=== PATIENT | female | born 1985 | race Caucasian/White ===

== ENCOUNTER 2017-02-08 13:23 | Emergency (ER) | payer OTHER ==
[2017-02-08 13:36] VITALS: BP 117/78
--- NOTE | 2017-02-08 16:33 | ED ---
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 Admits to some oozing of blood and denies FB. Tetanus is UTD as she received it 3 years ago during her . She denies any other injuries or complaints. Denies loss of ROM, obvious deformity and numbness/tingling. No PMHx. - History of Current Complaint Stated Complaint: RT HAND LAC Time Seen by Provider: 02/08/17 14:58 Hx Obtained From: Patient Mechanism of Injury: Sharp/Blunt Trauma - broken glass Onset/Duration: Sudden Onset Aggravating: Movement Alleviating: Compression Timing: Constant Onset Severity: Mild Current Severity: Mild Pain Intensity: 2 Pain Scale Used: 0-10 Numeric Associated Signs & Symptoms: Negative Related Hx: Dominant Hand (Right) - Allergy/Home Medications Allergies/Adverse Reactions: Allergies Allergy/AdvReac Type Severity Reaction Status Date / Time No Known Allergies Allergy Verified 04/24/13 04:09 PMH/Surg Hx/FS Hx/Imm Hx Endocrine/Hematology History: Denies: Hx Anticoagulant Therapy, Hx Diabetes Cardiovascular History: Denies: Hx Hypertension Respiratory History: Denies: Hx Asthma - Surgical History Surgery Procedure, Year, and Place: n/a - Immunization History Date of Tetanus Vaccine: 3 years ago Immunizations Up to Date: Yes Infectious Disease History: No Infectious Disease History: Denies: Traveled Outside the [place] in Last 30 Days - Family History Known Family History: Positive: None - Social History Alcohol Use: Rare Substance Use Type: Reports: None Smoking Status (MU): Never Smoked Tobacco Review of Systems Constitutional: Negative Cardiovascular: Negative Respiratory: Negative Musculoskeletal: Negative Positive: Other - laceration Neurological: Negative All Other Systems Reviewed And Are Negative: Yes Physical Exam Triage Information Reviewed: Yes Vital Signs On Initial Exam: Initial Vitals Temp Pulse Resp BP Pulse Ox 97.9 F 71 20 117/78 100 02/08/17 13:34 02/08/17 13:34 02/08/17 13:34 02/08/17 13:34 02/08/17 13:34 Vital Signs Reviewed: Yes Appearance: Positive: Well-Appearing, No Pain Distress, Well-Nourished Skin: Positive: Warm, Skin Color Reflects Adequate Perfusion, Dry, Soft, Other - ~1.5 cm linear laceration noted to right index posterior PIP joint without FB and minimal active bleeding. approximately .5cm deep through epidermal layer. No other abrasion or laceration noted. No ecchymosis, edema, step off, crepitus or obvious deformity noted to hand. Rest of skin exam normal.. Negative: Cold, Numb Eyes: Positive: Normal, Conjunctiva Clear ENT: Positive: Hearing grossly normal Respiratory/Lung Sounds: Positive: Clear to Auscultation, Breath Sounds Present. Negative: Rales, Rhonchi, Wheezes Cardiovascular: Positive: Normal, RRR, Pulses are Symmetrical in both Upper and Lower Extremities - 2+ radial b/l. Negative: Murmur, Rub Musculoskeletal: Positive: Normal, Strength/ROM Intact, Pain @ - some pain on palpation of laceration area and with movement, but able.. Negative: Limited @ , Interruption @, Edema Left, Edema Right Neurological: Positive: Normal, Sensory/Motor Intact - sensation intact b/l, Alert, Oriented to Person Place, Time, NV Bundle Intact Distally Psychiatric: Positive: Normal Procedures - Laceration/Wound Repair 1 Location: upper extremity - right index finger at posterior PIP joint Description: Linear - without tendon or bone involvement Anesthesia: Local, 1.0% Length, Depth and Shape: 1.5 cm length, .5cm depth, linear Betadine Prep?: Yes Irrigated w/ Saline (ccs): 50 Laceration/Wound Explored: clean, no foreign body removed Closure: Single Layer Suture Type: Prolene - 3-0 Number of Sutures: 3 Layer Closure?: No Sterile Dressing Applied?: Yes - telfa and coband Diagnostics - Vital Signs Vital Signs Temp Pulse Resp BP Pulse Ox 02/08/17 13:36 97.4 F 85 20 117/78 100 02/08/17 13:34 97.9 F 71 20 117/78 100 - Laboratory Lab Statement: Any lab studies that have been ordered have been reviewed, and results considered in the medical decision making process. Laceration Repair Course/Dx - Course Course Of Treatment: no x-ray obtained due to CRISTINA, HPI and PE findings. Laceration was sutured without complication, patient tolerated procedure well. Aware of worsening signs and symptoms to be aware of, such as infection. Remove in 5-7 days. Keep covered for first 24-48 hours. Keep clean and dry. Ibuprofen for discomfort. Follow up PCP. Yesy MEJIA. - Differential Dx Differental Diagnoses: Abrasion, Avulsion, Laceration, Other - Clinical Impression Provider Diagnoses: Laceration of right index finger Discharge - Discharge Plan Condition: Stable Disposition: HOME Patient Education Materials: Care For Your Stitches (ED), Laceration (ED) Referrals: Yoselyn Downing MD [Primary Care Provider] - Additional Instructions: Take Aleve or Motrin to help with pain and inflammation. This area may be a little sore for the next couple of days. Ice and elevate to help with swelling and for relief of pain. Keep dry for the next 24-48 hours. Keep clean and dry after removal of original dressing. Do not scrub stitches. Watch for signs of infection such as redness, swelling and discharge. If you develop these symptoms please seek medical attention promptly. Have stitches removed in the next 5-7 days. Follow up with PCP.
== END 2017-02-08 16:53 | disposition home or self-care (01) ==
LOC: ED 13:23
DX: S61.210A Laceration without foreign body of right index finger without damage to nail, initial encounter (principal); X58.XXXA Exposure to other specified factors, initial encounter; Y93.9 Activity, unspecified; Y92.9 Unspecified place or not applicable
CPT/HCPCS: 12001; 99281

== ENCOUNTER 2018-12-27 17:41 | Observation (INO) | payer OTHER ==
--- NOTE | 2018-12-27 18:16 | PN ---
L&D Outpatient: Visit - Reproductive Information Estimated Due Date: 01/24/19 Gestational Age: 36 Weeks and 0 Days : 5 Para: 2 - 2021 - Reason for Visit Visit Reason: cramping - Antepartal Records Antepartal Record: Reviewed, Complicated by: - history of precipitous deliveries, echogenic foci, anemia - Patient History Patient History Significant: Yes Patient History Significant For: LEEP, history of UTIs, history of depression Review of Systems Constitutional: Comfortable CV Complaint: No Respiratory: Shortness of Breath: No Gastrointestinal: No Nausea/Vomiting, Normal Bowel Movement Genitourinary: No Dysuria, No Bleeding, No Leaking Fluid Musculoskeletal: No Epigastric Pain, Contractions Neurological: No Headache, No Visual Changes Movement: Normal L&D Outpatient: Exam - Cervical Exam Cervical Exam: / - Abdominal Exam Abdomen Exam: Fundal Height Consistent with Dates - Membranes Membrane Status: Intact - Ultrasound/Biophysical Profile Ultrasound Status: Not Done EFM Findings - External Monitor Findings Baseline Heart Rate: 135 External Monitor Findings: Accelerations Present, No Pattern of Variable or Late Decelerations, Variability Moderate, Baseline Stable Contractions: Regular, Mild, < 45 Seconds L&D Outpatient: Asses/Plan Assessment: 33 y.o. , 36wks EGA, early labor - Discharge Diagnosis Discharge Diagnosis: Supervision-Normal Preg Plan: Continue Observation - IV fluids and CBC and type and screen
[2018-12-27] MEDS ORDERED: Lactated Ringers 1000 ML Bag* 1,000 ML IV SCH ×3 (19:00→22:00)
[2018-12-27] MEDS ORDERED: Lactated Ringers 1000 ML Bag* 1,000 ML IV ONE (21:02)
[2018-12-27] MEDS ORDERED: Penicillin G Potassium IV* 5,000,000 UNITS in NS 0.9% 100 ML* 100 ML IVPB ONE (21:02)
[2018-12-27] MEDS ORDERED: Buffered Lidocaine 1% SYRIN* 1 ML/SYRINGE INTRADERM ONE (21:02)
--- NOTE | 2018-12-27 21:14 | HP ---
General Information - Reason for Visit Threatened labor - General Information Maternal Age: 33 Grav: 5 Para: 2 SAB: 0 IEA: 2 Estimated Due Date: 01/24/19 Determined By: Early Ultrasound Gestational Age in Weeks/Days: 36. Maternal Blood Type and Rh: A Negative - Results this Serology/RPR Result: Non-Reactive Rubella Result: Non-Immune HBsAg Result: Negative HIV Result: Negative Past Medical History Delivery History: Hx Uncomplicated Vaginal Delivery Pertinent Past Medical History: See Records - history of UTIs, history of depression, LEEP 2008 Pertinent Past Surgical History: See Records - LEEP 2008 Pertinent Family History: See Records - mgm: von willebrands,\; CVD, DM, HTN, colon CA, celiac - Antepartal Records Antepartal Records: Reviewed, Complicated by: - history of precipitous deliveries, echogenic foci, left hydronephrosis (resolved), anemia Review of Systems Constitutional: Uncomfortable CV Complaint: No Respiratory: Shortness of Breath: No Gastrointestinal: No Nausea/Vomiting, Normal Bowel Movement Genitourinary: No Dysuria, No Leaking Fluid, Spotting Musculoskeletal: No Epigastric Pain, Contractions Neurological: No Headache, No Visual Changes Movement: Normal Exam Allergies/Adverse Reactions: Allergies No Known Allergies Allergy (Verified 04/24/13 04:09) T: 97.8, P:84, R:18, BP: 120/70, O2:99% Lab Values - Entire Visit: Laboratory Tests 12/27/18 18:35 Blood Type A Negative Antibody Screen Positive Antibody Identification Anti-D Direct Antiglob Test Negative - Measurements Height: 5 ft 2 in Weight: 158 lb Weight in lbs: [phone] Body Mass Index (BMI): 28.9 Pre- Weight: 123 lb Weight Gained This : 35 lbs and 0 ozs - Exam Breast: Breast Exam Deferred CVA: No CVA Tenderness Extremities: No Edema Heart: Normal Rhythm/Heart Sounds HEENT: No Significant Findings Lungs: Clear Bilaterally Rectal: Rectal Exam Deferred Reflexes: DTR 2+ Thyroid: No Thyromegaly - Abdominal Exam Abdomen Exam: Non-Tender, Fundal Height Consistent with Dates - Ultrasound/Biophysical Profile Ultrasound Status: Not Done Targeted Exam Findings See L&D Outpatient Visit Provider Note for Findings: Yes Estimated Weight: 6lbs 9oz Cervical Exam: 5cm Effacement: 90% Station: -1 Presenting Part: Vertex Membrane Status: Bulging Bleeding/Discharge: Bloody Show EFM Findings - External Monitor Findings Baseline Heart Rate: 135 External Monitor Findings: Accelerations Present, No Pattern of Variable or Late Decelerations, Variability Moderate, Baseline Stable Contractions: Regular, Moderate, 45-90 Seconds Assessment/Plan - Assessment 33 y.o. , threatened labor, GBS unknown - Obstetrical Risk Factors Obstetrical Risk Factors: GBS Unknown, - Plan Plan: IV Hydration, Antibiotic Prophylaxis, Admit - Anticipate Vaginal Delivery - Date/Time of Admission Date of Admission: 12/27/18 Time of Admission: 21:00
[2018-12-28] MEDS: Penicillin G Potassium IV* 2,500,000 UNITS in NS 0.9% 100 ML* 100 ML IVPB SCH ×2 (01:40→05:27)
--- NOTE | 2018-12-28 07:57 | PN ---
Progress Note - Progress Note Date of Service: 12/28/18 SOAP: Subjective: Pt reports contractions have spaced out and are milder. Pt reports bloody/ mucus discharge. Pt denies LOF or active bleeding. Objective: BP:107/68, P:81, T:98.2, FHR: 135bpm, + accels, -decels, moderate variability, ctx q 8min. cervix: 4/90/-1 Assessment: 33 y.o. , 36w1d, GBS status pending, threatened labor Plan: 1) Ambulation, if no contractions discharge to home. 2) Reviewed s/s of labor and when to call
[2018-12-28] MEDS ORDERED: Betamethasone INJ* 6 MG/ML 5 ML VIAL (30 MG) IM ONE (08:38)
== END 2018-12-28 09:30 | disposition home or self-care (01) ==
LOC: MCHOBOUT 17:41 → MCHOB 21:01 → INTOOBSV 21:01
PROVIDERS: ADMIT Midwife; ATTEND Midwife
DX: Z34.83 Encounter for supervision of other normal pregnancy, third trimester (principal); Z3A.36 36 weeks gestation of pregnancy
CPT/HCPCS: 36415; 86850; 86870; 86880; 86900; 86901; 87070; 87077; G0378; J0702; J2540

== ENCOUNTER 2019-01-09 21:30 | Inpatient (IN) | payer OTHER ==
[2019-01-09] MEDS ORDERED: Lactated Ringers 1000 ML Bag* 1,000 ML IV ONE (22:18)
[2019-01-09] MEDS ORDERED: Buffered Lidocaine 1% SYRIN* 1 ML/SYRINGE INTRADERM ONE (22:18)
--- NOTE | 2019-01-09 22:38 | HP ---
General Information - Reason for Visit Patient presents to Labor and delivery with complaints of leakage of vaginal fluid. - General Information Maternal Age: 33 Grav: 5 Para: 2 SAB: 0 IEA: 2 Estimated Due Date: 01/24/19 Determined By: Early Ultrasound Gestational Age in Weeks/Days: 38 Maternal Blood Type and Rh: A Negative - Results this Serology/RPR Result: Non-Reactive Rubella Result: Non-Immune HBsAg Result: Negative HIV Result: Negative GBS Culture Result: Negative Past Medical History Delivery History: See Records - History of precipitous deliveries at home Pertinent Past Medical History: See Records Past Medical History Comment: Depression Pertinent Past Surgical History: See Records Past Surgical History Comment: Leep 2008 Removal of throat ganglion cyst 1992 Pertinent Family History: See Records - Antepartal Records Antepartal Records: Reviewed, Complicated by: - Anemia, hydronephrosis mild Review of Systems Constitutional: Comfortable CV Complaint: No Respiratory: Shortness of Breath: No Gastrointestinal: No Nausea/Vomiting, Normal Bowel Movement Genitourinary: Leaking Fluid, No Dysuria, No Bleeding Musculoskeletal: No Complaint, No Epigastric Pain Neurological: No Headache, No Visual Changes Movement: Normal Exam Allergies/Adverse Reactions: Allergies No Known Allergies Allergy (Verified 01/09/19 21:54) Temp 98.8 BP 127/70 P 90 RR 18 POx 98 % Lab Values - Entire Visit: Laboratory Tests 01/09/19 21:45 Vag Amniotic Fld Detect Positive - Measurements Height: 5 ft 2 in Weight: 159 lb Weight in lbs: [phone] Body Mass Index (BMI): 29.0 Pre- Weight: 123 lb Weight Gained This : 36 lbs and 0 ozs - Exam Breast: Breast Exam Deferred CVA: No CVA Tenderness Extremities: No Edema Heart: Normal Rhythm/Heart Sounds HEENT: No Significant Findings Lungs: Clear Bilaterally Rectal: Rectal Exam Deferred Reflexes: DTR 2+ Thyroid: No Thyromegaly - Abdominal Exam Abdomen Exam: Non-Tender, Fundal Height Consistent with Dates - Ultrasound/Biophysical Profile Ultrasound Status: Not Done Biophysical Profile: Normal Reactive NST Targeted Exam Findings See L&D Outpatient Visit Provider Note for Findings: N/A Cervical Exam: 6cm Effacement: 80% Station: +1 Presenting Part: Vertex Membrane Status: SROM Amniotic Fluid Evaluation: Positive ROM Plus EFM Findings - External Monitor Findings Baseline Heart Rate: 140 External Monitor Findings: Accelerations Present Contractions: Regular, Moderate, < 45 Seconds Assessment/Plan - Plan Plan: Admit - Anticipate Vaginal Delivery
[2019-01-09 22:52] LABS: ABS Eosinophils 0.2 10^3/ul (0-0.6); ABS Monocytes 0.6 10^3/ul (0-0.8); ABS Neutrophils 4.5 10^3/ul (1.5-7.7); Eosinophil % 2.7 %; Hematocrit 33 % (35-47); Hemoglobin 11.4 g/dL (12.0-16.0); Mean Corpuscular HGB Conc 35 g/dL (31-36); Mean Corpuscular Hemoglobin 33 pg (27-31); Mean Corpuscular Volume 95 fL (80-97); Mean Platelet Volume 8.5 fL (7.4-10.4); Platelet Count 180 10^3/uL (150-450); Red Blood Count 3.47 10^6 /uL (3.70-4.87); Red Cell Distribution Width 15 % (10.5-15); White Blood Count 7.3 10^3/uL (3.5-10.8)
[2019-01-09] MEDS ORDERED: Lactated Ringers 1000 ML Bag* 1,000 ML IV SCH (23:00)
[2019-01-10] MEDS ORDERED: Oxytocin in LR* 20 UNITS/1,000 ML BAG IVPB ONE (07:08)
[2019-01-10] MEDS ORDERED: Oxytocin in LR* 20 UNITS/1,000 ML BAG IVPB SCH (08:00)
[2019-01-10] MEDS ORDERED: Witch Hazel PAD* JAR TOPICAL PRN (15:02)
[2019-01-10] MEDS ORDERED: Dibucaine 1% 28.35 GM TUBE PR PRN (15:02)
[2019-01-10] MEDS ORDERED: Glycerin ADULT SUPP PR PRN (15:02)
[2019-01-10] MEDS ORDERED: Acetaminophen TAB* 325 MG PO PRN (15:02)
--- NOTE | 2019-01-10 15:09 | PROCNOTE ---
[facility] OB: Delivery Note - Delivery A Date of : 01/10/19 Time of : 14:50 Sex: Male Weight at : 8 lb Score 1 Minute: 9 Score 5 Minutes: 9 Gestational Age in Weeks and Days at Delivery: 38 Weeks and 0 Days Delivery Method: Spontaneous Vaginal Labor: Spontaneous Did Patient attempt ?: N/A, No Previous Amniotic Fluid: Clear Estimated Blood Loss: 300 Anesthesia/Analgesia: None Delivered By: Steven Oropeza - Nursery Level of Nursery: Regular/Bedside - Perineum Perineal Injury: None/Intact Perineal Repair: None - Events Delivery Events of Note: Pitocin During Labor
[2019-01-10] MEDS ORDERED: Lactated Ringers 1000 ML Bag* 1,000 ML IV SCH (16:00)
[2019-01-10] MEDS: Ibuprofen TAB* 600 MG PO PRN ×2 (16:35→22:55)
[2019-01-10] MEDS ORDERED: Simethicone TAB* 80 MG TAB.CHEW PO SCH (17:30)
[2019-01-10] MEDS: Docusate CAP* 100 MG PO SCH (22:55)
[2019-01-11 07:12] LABS: ABS Eosinophils 0.2 10^3/ul (0-0.6); ABS Lymphocytes 2.3 10^3/ul (1.0-4.8); ABS Neutrophils 6.4 10^3/ul (1.5-7.7); Eosinophil % 1.9 %; Hematocrit 32 % (35-47); Hemoglobin 10.9 g/dL (12.0-16.0); Lymphocyte % 23.4 %; Mean Corpuscular HGB Conc 34 g/dL (31-36); Mean Corpuscular Hemoglobin 33 pg (27-31); Mean Corpuscular Volume 97 fL (80-97); Platelet Count 165 10^3/uL (150-450); Red Cell Distribution Width 15 % (10.5-15); White Blood Count 9.9 10^3/uL (3.5-10.8)
[2019-01-11] MEDS ORDERED: Measles, Mumps,Rubella VACC* 0.5 ML/VIAL SUBCUT ONE (07:16)
[2019-01-11] MEDS: Ibuprofen TAB* 600 MG PO PRN ×2 (08:03→17:48)
[2019-01-11] MEDS: Docusate CAP* 100 MG PO SCH ×3 (08:03→21:24)
[2019-01-11] MEDS ORDERED: Ferrous Gluconate TAB* 324 MG TAB PO SCH (09:00)
[2019-01-12] MEDS: Ibuprofen TAB* 600 MG PO PRN ×2 (02:22→09:35)
[2019-01-12 08:42] VITALS: BP 111/66
[2019-01-12] MEDS: Docusate CAP* 100 MG PO SCH (09:35)
== END 2019-01-12 14:10 | disposition home or self-care (01) | DRG 807 ==
LOC: MCHOBOUT 21:30 → MCHOB 22:12
PROVIDERS: ADMIT Obstetrics & Gynecology; ATTEND Obstetrics & Gynecology
PROC: 10E0XZZ Delivery of Products of Conception, External Approach (ICD-10-PCS; principal; 2019-01-10)
PROC: 4A1HXCZ Monitoring of Products of Conception, Cardiac Rate, External Approach (ICD-10-PCS; 2019-01-10)
PROC: 3E033VJ Introduction of Other Hormone into Peripheral Vein, Percutaneous Approach (ICD-10-PCS; 2019-01-10)
DX: O80 Encounter for full-term uncomplicated delivery (principal); Z37.0 Single live birth; Z3A.38 38 weeks gestation of pregnancy; Z67.11 Type A blood, Rh negative
CPT/HCPCS: 36415; 84112; 85025; 86850; 86870; 86880; 86900; 86901; 90707; A9270-GY